=== PATIENT | male | born 1985 | race Caucasian/White ===

== ENCOUNTER 2019-01-18 11:31 | Emergency (ER) | payer SELFPAY ==
[2019-01-18 11:57] VITALS: BP 135/89; PULSE 113; TEMP 100.9; BMI 31.4
[2019-01-18] MEDS ORDERED: IBUPROFEN 400 MG TABLET (FP) PO ONE ×2 (13:17→13:19)
[2019-01-18] MEDS ORDERED: ALBUTEROL SO4 2.5/IPRATROPIUM 0.5 INH SOL 3 ML VIAL.NEB. NEB ONE ×2 (13:17→13:19)
--- NOTE | 2019-01-18 13:17 | PDOC ---
History of Present Illness - General Chief Complaint: Respiratory Stated Complaint: CHEST PAIN Time Seen by Provider: 01/18/19 12:44 History Source: Patient Exam Limitations: No Limitations - History of Present Illness Initial Comments: 01/18/19 14:06 Patient is a 34-year-old male past medical history who presents with 4 days of cough, sore throat, fever and headache. Patient has not taken any medication at home for his symptoms. Patient did not get a flu shot this year. Denies chest pain, difficulty breathing, shortness of breath, nausea, vomiting and diarrhea. [employer] used [id number] Past History - Travel Traveled outside of the country in the last 30 days: No Close contact w/someone who was outside of country & ill: No - Past Medical History Allergies/Adverse Reactions: Allergies Allergy/AdvReac Type Severity Reaction Status Date / Time No Known Allergies Allergy Verified 01/18/19 11:53 - Suicide/Smoking/Psychosocial Hx Smoking History: Current every day smoker Number of Cigarettes Smoked Daily: 5 Information on smoking cessation initiated: Yes Hx Alcohol Use: No Drug/Substance Use Hx: No Review of Systems - Review of Systems Able to Perform ROS?: Yes Comments:: 01/18/19 13:17 CONSTITUTIONAL: Present: Fever, chills, body aches Absent: diaphoresis, generalized weakness, malaise, loss of appetite HEENT: Present: rhinorrhea, nasal congestion, throat pain. Absent: difficulty swallowing, mouth swelling, ear pain, eye pain, visual Changes CARDIOVASCULAR: Absent: chest pain, loss of consciousness, palpitations, irregular heart rate, peripheral edema RESPIRATORY: Present: Cough Absent: shortness of breath, dyspnea with exertion, orthopnea, wheezing, stridor, hemoptysis GASTROINTESTINAL: Absent: abdominal pain, abdominal distension, nausea, vomiting, diarrhea, constipation, melena, hematochezia SKIN: Absent: rash, itching, pallor NEUROLOGIC: Present: headache Absent: focal weakness or paresthesias, dizziness, unsteady gait, seizure, mental status changes, bladder or bowel incontinence *Physical Exam - Vital Signs Last Vital Signs Temp Pulse Resp BP Pulse Ox 100.9 F H 113 H 16 135/89 99 01/18/19 11:53 01/18/19 11:53 01/18/19 11:53 01/18/19 11:53 01/18/19 11:53 - Physical Exam Comments: 01/18/19 13:17 GENERAL: Well developed, well nourished. Awake and alert. No acute distress. HEENT: Normocephalic, atraumatic. PERRLA, EOMI. No conjunctival pallor. Sclera are non- icteric. Moist mucous membranes. Oropharynx is clear. NECK: Supple. Full ROM. No JVD. Carotid pulses 2+ and symmetric, without bruits. No thyromegaly. No lymphadenopathy. CARDIOVASCULAR: Regular rate and rhythm. No murmurs, rubs, or gallops. Distal pulses are 2+ and symmetric. PULMONARY: No evidence of respiratory distress. Lungs clear to auscultation bilaterally. No wheezing, rales or rhonchi. ABDOMINAL: Soft. Non-tender. Non-distended. No rebound or guarding. No organomegaly. Normoactive bowel sounds. MUSCULOSKELETAL Normal range of motion at all joints. No bony deformities or tenderness. No CVA tenderness. EXTREMITIES: No cyanosis. No clubbing. No edema. No calf tenderness. SKIN: Warm and dry. Normal capillary refill. No rashes. No jaundice. NEUROLOGICAL: Alert, awake, appropriate. Cranial nerves 2-12 intact. No deficits to light touch and temperature in face, upper extremities and lower extremities. No motor deficits in the in face, upper extremities and lower extremities. Normoreflexic in the upper and lower extremities. Normal speech. Toes are down- going bilaterally. Gait is normal without ataxia. PSYCHIATRIC: Cooperative. Good eye contact. Appropriate mood and affect. Moderate Sedation - Procedure Monitoring Vital Signs: Procedure Monitoring Vital Signs Temperature 100.9 F H 01/18/19 11:53 Pulse Rate 113 H 01/18/19 11:53 Respiratory Rate 16 01/18/19 11:53 Blood Pressure 135/89 01/18/19 11:53 O2 Sat by Pulse Oximetry (%) 99 01/18/19 11:53 Medical Decision Making - Medical Decision Making 01/18/19 14:08 Patient is a 34-year-old male past medical history who presents 4 days of flulike symptoms. Exam is unremarkable. Lung sounds clear to the bases bilaterally DuoNeb and Motrin given with relief of symptoms. Flu and rapid strep are negative. EKG rate 108 bpm, normal sinus rhythm. Normal intervals, normal axis no acute ST -T wave changes. Most likely an upper respiratory infection Discharge home I discussed the physical exam findings, ancillary test results and final diagnoses with the patient. I answered all of the patient's questions. The patient was satisfied with the care received and felt comfortable with the discharge plan and treatment plan. The Patient agrees to follow up with the primary care physician/specialist within 24-72 hours. Return precautions were given. *DC/Admit/Observation/Transfer Diagnosis at time of Disposition: Upper respiratory infection Qualifiers: URI type: unspecified viral URI Qualified Code(s): J06.9 - Acute upper respiratory infection, unspecified - Discharge Dispostion Disposition: HOME Condition at time of disposition: Stable Decision to Admit order: No - Referrals Referrals: Jose De Jesus Medley MD [Staff Physician] - - Patient Instructions Printed Discharge Instructions: DI for Viral Upper Respiratory Infection -- Adult Additional Instructions: You have an upper respiratory infection, or the common cold. Your strep and flu testing were negative today. Please take Motrin 800 mg every 8 hours as needed for pain not to exceed 3000 mg a day. Drink plenty of fluids. Cough drops and warm tea may help your symptoms as well. Please follow up with her primary care doctor this week. Return to the emergency department if you have difficulty breathing, shortness of breath, worsening pain, nausea, vomiting or if you have any changes in your symptoms. Usted tiene kesha infeccin respiratoria superior, o el resfriado comn. Tu prueba de estreptococo y gripe fueron negativas hoy. [place] Motrin 800 mg cada 8 horas segn sea necesario para que el dolor no exceda los 3000 mg al da. Beber mucho lquido. Las gotas para la tos y el t caliente tambin pueden ayudar con luis sntomas. Por favor lewis un seguimiento con nolasco mdico de atencin primaria esta semana. Regrese a la bill de emergencias si tiene dificultad para respirar, dificultad para respirar, empeoramiento del dolor, nuseas, vmitos o si tiene algn cambio en luis sntomas. - Post Discharge Activity Forms/Work/School Notes: Back to Work
--- NOTE | 2019-01-20 11:57 | EKG ---
Test Reason : Blood Pressure : / mmHG Vent. Rate : 108 BPM Atrial Rate : 108 BPM P-R Int : 156 ms QRS Dur : 080 ms QT Int : 320 ms P-R-T Axes : 040 083 019 degrees QTc Int : 428 ms POOR DATA QUALITY, INTERPRETATION MAY BE ADVERSELY AFFECTED SINUS TACHYCARDIA OTHERWISE NORMAL ECG NO PREVIOUS ECGS AVAILABLE Confirmed by TRISTON PENNINGTON, HUMA ([id number]) on 01/20/2019 11:56:56 AM Referred By: Confirmed By:HUMA GOLDSTEIN MD
== END 2019-01-18 14:16 | disposition home or self-care (01) ==
LOC: JERFT 11:31
PROC: 3E0F7GC Introduction of Other Therapeutic Substance into Respiratory Tract, Via Natural or Artificial Opening (ICD-10-PCS; principal; 2019-01-18)
DX: J06.9 Acute upper respiratory infection, unspecified (principal)
CPT/HCPCS: 87070; 87804; 87880; 93005; 93010; 99281-25